=== PATIENT | female | born 1960 | race Two or more races ===

== ENCOUNTER 2018-03-23 14:48 | Emergency (ER) | payer OTHER ==
[2018-03-23] MEDS ORDERED: PROCHLORPERAZINE EDISYLATE INJ 10 MG/2 ML VIAL IV ONE (15:04)
[2018-03-23] MEDS ORDERED: DIPHENHYDRAMINE HCL 25 MG CAPSULE PO ONE (15:05)
--- NOTE | 2018-03-23 15:11 | ER Document Report ---
ED General <ARINA GIANG - Last Filed: 03/23/18 17:09> - General Mode of Arrival: Ambulatory Information source: Patient TRAVEL OUTSIDE OF THE [place] IN LAST 30 DAYS: Yes - HERNANDEZ,[facility] <ANEUDY LEARY - Last Filed: 03/23/18 20:10> - General Chief Complaint: Headache Stated Complaint: HEADACHE Time Seen by Provider: 03/23/18 14:53 Notes: Patient is a 57 year old female with HTN, hyperlipidemia, presents to the emergency department complaining of a headache onset a few days ago. Patient states the headache is progressively worsening and located on the right side of her head, near her shunt. She describes the pain as a sharpness. 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 Patient mentions currently having an aneurysm behind her left eye. Patient's PCP is [facility] and her neurosurgeon is Dr. Martinez at [facility]. Patient mentions her last CT scan being performed approximately 1 month ago. (ANEUDY LEARY) - Related Data Allergies/Adverse Reactions: No Known Allergies Allergy (Verified 03/23/18 14:59) Past Medical History - Past Medical History Cardiac Medical History: Reports: Hx Hypercholesterolemia, Hx Hypertension Endocrine Medical History: Reports: Hx Hypothyroidism Past Surgical History: Reports: Hx Neurologic Surgery - Cerebral aneurysm was coiled, MANUSCRIPTS CURATOR shunt placed for hydrocephalus <ARINA GIANG - Last Filed: 03/23/18 17:09> - General Information source: Patient - Social History Smoking Status: Never Smoker Cigarette use (# per day): No Chew tobacco use (# tins/day): No Smoking Education Provided: No Frequency of alcohol use: None Drug Abuse: None Family History: Reviewed & Not Pertinent - Past Medical History Cardiac Medical History: Reports: Hx Hypercholesterolemia <ANEUDY LEARY - Last Filed: 03/23/18 20:10> Review of Systems - Review of Systems Constitutional: No symptoms reported EENT: No symptoms reported Cardiovascular: No symptoms reported Respiratory: No symptoms reported Gastrointestinal: No symptoms reported Genitourinary: No symptoms reported Female Genitourinary: No symptoms reported Musculoskeletal: No symptoms reported Skin: No symptoms reported Hematologic/Lymphatic: No symptoms reported Neurological/Psychological: See HPI, Headaches -: Yes All other systems reviewed and negative <ANEUDY LEARY - Last Filed: 03/23/18 20:10> Physical Exam - General General appearance: Appears well, Alert In distress: None - HEENT Head: Normocephalic, Atraumatic, Tenderness - Right temporal tender to palpaiton , tender along MANUSCRIPTS CURATOR shunt placement on right side. Eyes: Normal Conjunctiva: Normal Extraocular movements intact: Yes Pupils: PERRL Mucous membranes: Normal Neck: Normal, Other - Tender to palpation to the right trapezius, tender to palpation to the right posterior cervical muscles. No tenderness of left posterior cervical muscles. - Respiratory Respiratory status: No respiratory distress Chest status: Nontender Breath sounds: Normal Chest palpation: Normal - Cardiovascular Rhythm: Regular Heart sounds: Normal auscultation Murmur: No Friction rub: No Gallop: None auscultated Pulses: Normal: Radial - Abdominal Inspection: Normal Distension: No distension Bowel sounds: Normal Tenderness: Nontender Organomegaly: No organomegaly - Back Back: Normal - Extremities General upper extremity: Normal ROM General lower extremity: Normal ROM - Neurological Neuro grossly intact: Yes Cognition: Normal Orientation: AAOx4 Anne Coma Scale Eye Opening: Spontaneous Anne Coma Scale Verbal: Oriented Fields Coma Scale Motor: Obeys Commands Anne Coma Scale Total: 15 Speech: Normal - Psychological Associated symptoms: Normal affect, Normal mood - Skin Skin Temperature: Warm Skin Moisture: Dry Skin Color: Normal <ANEUDY LEARY - Last Filed: 03/23/18 20:10> - Vital signs Vitals: Temp 98.5 F 03/23/18 14:58 Course - Laboratory Result Diagrams: 03/23/18 14:54 03/23/18 14:54 - Diagnostic Test Radiology reviewed: Image reviewed, Reports reviewed - CT scan does not show any acute problems. There is a MANUSCRIPTS CURATOR shunt and the ventricles appear to be normal size. <ARINA GIANG - Last Filed: 03/23/18 17:09> - Laboratory Result Diagrams: 03/23/18 14:54 03/23/18 14:54 <ANEUDY LEARY - Last Filed: 03/23/18 20:10> - Re-evaluation Re-evalutation: 03/23/18 16:19 Patient states that her headache is considerably better now. She is smiling and happy. The right posterior cervical muscles are much less tender now than previously. (ARINA GIANG) - Vital Signs Vital signs: Temp Pulse Resp BP Pulse Ox 98.5 F 82 16 157/99 H 98 03/23/18 14:58 03/23/18 16:28 03/23/18 16:28 03/23/18 16:28 03/23/18 16:28 - Laboratory Laboratory results interpreted by me: 03/23/18 03/23/18 14:54 14:54 Hgb 11.9 L Hct 34.2 L RDW 14.4 H Glucose 112 H Discharge <ARINA GIANG - Last Filed: 03/23/18 17:09> <ANEUDY LEARY - Last Filed: 03/23/18 20:10> - Discharge Clinical Impression: Muscle tension headache Condition: Stable Disposition: HOME, SELF-CARE Additional Instructions: Tension Headache: Your problem has been diagnosed as muscle tension headache. This very common type of headache occurs because of tightness in the muscles of the head and neck. The cause may be neck or jaw joint problems, but most commonly the cause is emotional stress. The headache may last hours or days. The treatment of uncomplicated tension headaches is rest and pain medication. Often, the newer antiinflammatory pain medications are prescribed, as these also decrease the irritability of the painful tissues. Muscle relaxers , cold packs, or warm packs are sometimes helpful. Anti-anxiety medication or narcotics are sometimes needed temporarily, but are best avoided in the long run. Your doctor has evaluated your headache problem, and finds no evidence of a serious health problem as a cause for the headache. If your headache becomes more severe, or if new symptoms develop (such as fever, stiff neck, vomiting, or decreasing alertness) you should be re-examined by the physician. Take Tylenol for pain. Take the muscle relaxer Flexeril as prescribed for neck muscle tension. Try ice packs and or moist heat to the painful neck and scalp muscles. Do not take anti-inflammatory medications unless they are approved by your primary care doctor. Follow-up with your doctor if not improving. RETURN TO THE EMERGENCY ROOM IF ANY NEW OR WORSENING SYMPTOMS. Prescriptions: Cyclobenzaprine HCl [Flexeril 5 mg Tablet] 5 mg PO TID PRN #15 tablet PRN Reason: Referrals: LING FRENCH DO [Primary Care Provider] - Follow up as needed Scribe Attestation: 03/23/18 15:23 I personally performed the services described in the documentation, reviewed and edited the documentation which was dictated to the scribe in my presence, and it accurately records my words and actions. (ARINA GIANG) Scribe Documentation - Scribe Written by Andra:: Andra Gonzalez, 03/23/2018 15:23 acting as scribe for :: Ken <ANEUDY LEARY - Last Filed: 03/23/18 20:10>
[2018-03-23 15:32] LABS: ABSOLUTE BASOPHILS # (AUTO) 0.1 10^3/uL (0.0-0.2); ABSOLUTE EOSINOPHILS # (AUTO) 0.1 10^3/uL (0.0-0.6); ABSOLUTE MONOCYTES (AUTO) 0.6 10^3/uL (0.1-1.4); ABSOLUTE NEUT (AUTO) 4.9 10^3/uL (1.7-8.2); BASOPHILS % (AUTO) 0.7 % (0-2); EOSINOPHILS % (AUTO) 1.2 % (0-6); HEMATOCRIT 34.2 % (36.0-47.0); HEMOGLOBIN 11.9 g/dL (12.0-15.5); LYMPHOCYTES % (AUTO) 41.1 % (13-45); MEAN CORPUSCULAR HEMOGLOBIN 29.9 pg (27.0-33.4); MEAN CORPUSCULAR HGB CONC 34.9 g/dL (32.0-36.0); MEAN CORPUSCULAR VOLUME 86 fl (80-97); MONOCYTES % (AUTO) 6.6 % (3-13); PLATELET COUNT 222 10^3/uL (150-450); RED CELL DISTRIBUTION WIDTH 14.4 % (11.5-14.0); SEGMENTED NEUTROPHILS % (AUTO) 50.4 % (42-78); TOTAL CELLS COUNTED % (AUTO) 100 %; WHITE BLOOD COUNT 9.7 10^3/uL (4.0-10.5)
[2018-03-23 15:34] LABS: INTERNATIONAL RATION (INR) 0.94; PROTHROMBIN TIME 13.1 SEC (11.4-15.4)
[2018-03-23 15:44] LABS: ALANINE AMINOTRANSFERASE 23 U/L (9-52); ALBUMIN 4.1 g/dL (3.5-5.0); ALKALINE PHOSPHATASE 64 U/L (38-126); ANION GAP 11 (5-19); ASPARTATE AMINO TRANSFERASE 20 U/L (14-36); BILIRUBIN,DIRECT 0.2 mg/dL (0.0-0.4); BILIRUBIN,TOTAL 0.5 mg/dL (0.2-1.3); BLOOD UREA NITROGEN 16 mg/dL (7-20); CALCIUM 9.6 mg/dL (8.4-10.2); CARBON DIOXIDE 25 mmol/L (22-30); CHLORIDE 106 mmol/L (98-107); GLUCOSE 112 mg/dL (75-110); POTASSIUM 4.4 mmol/L (3.6-5.0); SODIUM 142.3 mmol/L (137-145); TOTAL PROTEIN 7.2 g/dL (6.3-8.2)
--- NOTE | 2018-03-23 15:44 | RADIOLOGY REPORT (SQ) ---
EXAM DESCRIPTION: CT HEAD WITHOUT COMPLETED DATE/TIME: 03/23/2018 3:25 pm REASON FOR STUDY: R sided HOPPER, HEARING AID ASSISTANT shunt, SAH on 10-16-17 COMPARISON: None. TECHNIQUE: Axial images acquired through the brain without intravenous contrast. Images reviewed wi th bone, brain and subdural windows. Images stored on PACS. All CT scanners at this facility use dose modulation, iterative reconstruction, and/or weight based d osing when appropriate to reduce radiation dose to as low as reasonably achievable (ALARA). [facility]: Dose Right [facility]: CareDose [facility]: Dose Right [facility]: Teradose 4D [facility]: [employer] RADIATION DOSE: CT Rad equipment meets quality standard of care and radiation dose reduction techniq ues were employed. CTDIvol: 53.2 mGy. DLP: 911 mGy-cm. mGy. LIMITATIONS: None. FINDINGS: VENTRICLES: Age-appropriate. Right-sided ventriculostomy catheter. CEREBRUM: Coils are present in the region of the right ICA -MCA junction. No masses. No hemorrhage. No midline shift. Areas of low density in the white matter most likely due to chronic micro-vascul ar ischemic change. No evidence for acute infarction. CEREBELLUM: No masses. No hemorrhage. No alteration of density. No evidence for acute infarction. EXTRAAXIAL SPACES: Mild age-related involutional change. No fluid collections. No masses. ORBITS AND GLOBE: No intra- or extraconal masses. Normal contour of globe without masses. CALVARIUM: No fracture. PARANASAL SINUSES: Mild left maxillary sinus mucosal thickening. SOFT TISSUES: No mass or hematoma. OTHER: No other significant finding. IMPRESSION: No acute intracranial findings. EVIDENCE OF ACUTE STROKE: NO. TECHNICAL DOCUMENTATION: JOB ID: [id number] [id number] Quality ID # [id number]: Final reports with documentation of one or more dose reduction techniques (e.g., Au tomated exposure control, adjustment of the mA and/or kV according to patient size, use of iterative reconstruction technique) 2010 [employer]- All Rights Reserved Reading location - IP/workstation name: [email or web address]
[2018-03-23 16:34] VITALS: BP 157/99
== END 2018-03-23 16:32 | disposition home or self-care (01) ==
LOC: ER 14:48
DX: G44.209 Tension-type headache, unspecified, not intractable (principal); I10 Essential (primary) hypertension; E78.5 Hyperlipidemia, unspecified
CPT/HCPCS: 99284; 96374; 36415; 85025; 85610; 80053; 70450; J0780